=== PATIENT | female | born 1960 | race Caucasian/White ===

== ENCOUNTER 2016-03-11 23:03 | Emergency (ER) | payer OTHER ==
[2016-03-11] MEDS ORDERED: NS 0.9% 1000 ML* 1,000 ML IV ONE (23:30)
[2016-03-11 23:44] LABS: Hematocrit 42 % (35-47); Hemoglobin 13.9 g/dl (12.0-16.0); Mean Corpuscular HGB Conc 33 g/dl (31-36); Mean Corpuscular Hemoglobin 27 pg (27-31); Mean Corpuscular Volume 80 fL (80-97); Mean Platelet Volume 10 um3 (7.4-10.4); Red Blood Count 5.22 10^6/ul (4.0-5.4); Red Cell Distribution Width 14 % (10.5-15); White Blood Count 14.5 10^3/ul (3.5-10.8)
[2016-03-11 23:56] LABS: BUN/Creatinine Ratio 16.2 (8-20); Calcium 9.8 mg/dL (8.6-10.3); EGFR African American 114.7 (>60); EGFR Non-African American 89.2 (>60); Globulin 3.1 g/dL (2-4); Magnesium 1.8 mg/dL (1.9-2.7); Potassium 3.5 mmol/L (3.5-5.0); Total Bilirubin 0.7 mg/dL (0.2-1.0); Total Protein 7.1 g/dL (6.4-8.9)
--- NOTE | 2016-03-12 00:01 | ED ---
Haile Mcguire Billy, scribed for Darrel Garcia MD on 03/11/16 at 2343 . HPI Chest Pain - HPI Summary HPI Summary: Patient is a 55 year-old female coming to the ED with intermittent left-sided chest pain starting at approximately 1800 today. Pain radiates to the back. Severity 7/10. She states that she started a course of azithromycin for possible pneumonia today, and has had several episodes of N/V/D since she took her dose at noon. She also reports fever and wheezing. She denies any similar previous episodes of her current symptoms. - History of Current Complaint Chief Complaint: EDChestPainROMI Time Seen by Provider: 03/11/16 23:21 Hx Obtained From: Patient Onset/Duration: Started Hours Ago, Still Present Time of Onset: 18:00 Timing: Intermittent Initial Severity: Moderate Current Severity: Moderate Pain Intensity: 7 Pain Scale Used: 0-10 Numeric Chest Pain Location: Left Anterior Chest Pain Radiates: Yes Chest Pain Radiates To:: Back Aggravating Factor(s): Nothing Alleviating Factor(s): Nothing Associated Signs and Symptoms: Positive: Fever, Nausea, Vomiting, Wheezing, Other: - diarrhea - Allergy/Home Medications Allergies/Adverse Reactions: Allergies Allergy/AdvReac Type Severity Reaction Status Date / Time Bee Venom Allergy Unknown Verified 10/15/14 13:47 Reaction Details Penicillins Allergy See Comment Verified 10/15/14 13:46 Sulfa Antibiotics Allergy Rash Verified 10/15/14 13:47 PMH/Surg Hx/FS Hx/Imm Hx Endocrine/Hematology History: Reports: Hx Diabetes - diagnosed with pre-diabetes Cardiovascular History: Reports: Hx Hypertension Denies: Hx Myocardial Infarction - Cancer History Hx Chemotherapy: No Hx Radiation Therapy: No Infectious Disease History: No Infectious Disease History: Denies: Traveled Outside the [place] in Last 30 Days - Family History Known Family History: Positive: Cardiac Disease, Other Family History: FHx of breast cancer. - Social History Substance Use Type: Reports: None Smoking Status (MU): Never Smoked Tobacco Review of Systems Positive: Fever Positive: Chest Pain Positive: Other - wheezing Positive: Vomiting, Diarrhea, Nausea All Other Systems Reviewed And Are Negative: Yes Physical Exam Triage Information Reviewed: Yes Vital Signs On Initial Exam: Initial Vitals Temp Pulse Resp BP Pulse Ox 97.5 F 97 18 150/103 94 03/11/16 23:07 03/11/16 23:07 03/11/16 23:07 03/11/16 23:07 03/11/16 23:07 Vital Signs Reviewed: Yes Appearance: Positive: Well-Appearing, No Pain Distress Skin: Positive: Warm Head/Face: Positive: Normal Head/Face Inspection Eyes: Positive: Normal ENT: Positive: Hearing grossly normal Neck: Positive: Supple Respiratory/Lung Sounds: Positive: Clear to Auscultation, Breath Sounds Present. Negative: Rhonchi Cardiovascular: Positive: Normal. Negative: Murmur Abdomen Description: Positive: Nontender, Soft Bowel Sounds: Positive: Present Musculoskeletal: Positive: Strength/ROM Intact Neurological: Positive: Sensory/Motor Intact Psychiatric: Positive: Affect/Mood Appropriate Diagnostics - Vital Signs Vital Signs Temp Pulse Resp BP Pulse Ox 03/11/16 23:07 97.5 F 97 18 150/103 94 - Laboratory Lab Results: Lab Results 03/11/16 03/11/16 03/11/16 Range/Units 23:30 23:30 23:30 WBC 14.5 H (3.5-10.8) 10^3/ul RBC 5.22 (4.0-5.4) 10^6/ul Hgb 13.9 (12.0-16.0) g/dl Hct 42 (35-47) % MCV 80 (80-97) fL MCH 27 (27-31) pg MCHC 33 (31-36) g/dl RDW 14 (10.5-15) % Plt Count 183 (150-450) 10^3/ul MPV 10 (7.4-10.4) um3 Neut % (Auto) 85.9 H (38-83) % Lymph % (Auto) 8.9 L (25-47) % [place] % (Auto) 3.9 (1-9) % Eos % (Auto) 0.8 (0-6) % Baso % (Auto) 0.5 (0-2) % Absolute Neuts (auto) 12.5 H (1.5-7.7) 10^3/ul Absolute Lymphs (auto) 1.3 (1.0-4.8) 10^3/ul Absolute Monos (auto) 0.6 (0-0.8) 10^3/ul Absolute Eos (auto) 0.1 (0-0.6) 10^3/ul Absolute Basos (auto) 0.1 (0-0.2) 10^3/ul Absolute Nucleated RBC 0 10^3/ul Nucleated RBC % 0 Sodium 128 L (133-145) mmol/L Potassium 3.5 (3.5-5.0) mmol/L Chloride 106 (101-111) mmol/L Carbon Dioxide 23 (22-32) mmol/L Anion Gap -1 L (2-11) mmol/L BUN 11 (6-24) mg/dL Creatinine 0.68 (0.51-0.95) mg/dL Est GFR ( Amer) 114.7 (>60) Est GFR (Non-Af Amer) 89.2 (>60) BUN/Creatinine Ratio 16.2 (8-20) Glucose 143 H (70-100) mg/dL Lactic Acid 0.8 (0.5-2.0) mmol/L Calcium 9.8 (8.6-10.3) mg/dL Magnesium 1.8 L (1.9-2.7) mg/dL Total Bilirubin 0.70 (0.2-1.0) mg/dL AST 18 (13-39) U/L ALT 30 (7-52) U/L Alkaline Phosphatase 93 (34-104) U/L Total Protein 7.1 (6.4-8.9) g/dL Albumin 4.0 (3.2-5.2) g/dL Globulin 3.1 (2-4) g/dL Albumin/Globulin Ratio 1.3 (1-3) Result Diagrams: 03/11/16 23:30 03/11/16 23:30 Lab Statement: Any lab studies that have been ordered have been reviewed, and results considered in the medical decision making process. - Radiology CXR Xray Interpretation: No Acute Changes Radiology Interpretation Completed By: ED Physician - EKG 5021 EKG Interpretation: NSR 97 bpm, WNL Re-Evaluation - Re-Evaluation First Eval Change: Improved Chest Pain Course/Dx - Diagnoses Provider Diagnoses: Sinusitis Discharge - Discharge Plan Condition: Stable Disposition: HOME Patient Education Materials: Sinusitis (ED) Referrals: Jessi Coello MD [Primary Care Provider] - Additional Instructions: CONTINUE PRESENT TREATMENT. FOLLOW UP WITH YOUR PRIMARY CARE PHYSICIAN. The documentation as recorded by the scribe, Be,Carl accurately reflects the service I personally performed and the decisions made by me, Darrel Garcia MD.
[2016-03-12 00:25] VITALS: BP 137/85
--- NOTE | 2016-03-12 07:18 | RAD ---
HISTORY: Cough COMPARISONS: July 06, 2006 VIEWS: 2: Frontal dual-energy and lateral views of the chest. FINDINGS: CARDIOMEDIASTINAL SILHOUETTE: The cardiomediastinal silhouette is normal. PETTY: The petty are normal. PLEURA: The costophrenic angles are sharp. No pleural abnormalities are noted. LUNG PARENCHYMA: The lungs are clear. ABDOMEN: The upper abdomen is clear. There is no subphrenic gas. BONES AND SOFT TISSUES: No bone or soft tissue abnormalities are noted. OTHER: None. IMPRESSION: NO ACTIVE CARDIOPULMONARY DISEASE.
== END 2016-03-12 00:26 | disposition home or self-care (01) ==
LOC: ED 23:03
DX: J32.9 Chronic sinusitis, unspecified (principal); R07.9 Chest pain, unspecified; R50.9 Fever, unspecified; R06.2 Wheezing; R11.2 Nausea with vomiting, unspecified; R19.7 Diarrhea, unspecified; R05 Cough
CPT/HCPCS: 36415; 71020; 80053; 83605; 83735; 85025; 93005; 96360; 99282

== ENCOUNTER 2016-09-16 10:03 | Emergency (ER) | payer OTHER ==
[2016-09-16] MEDS ORDERED: Aspirin Low Dose CHEW TAB* 81 MG PO ONE (10:19)
--- NOTE | 2016-09-16 10:39 | RAD ---
Indication: Chest pain. Single frontal view of the chest performed at 1030 hours was reviewed. Comparison is made with previous exam dated March 11, 2016. No mediastinal shift is noted. Heart is of normal size and configuration. Lung montiel appear clear. IMPRESSION: NO ACTIVE CARDIOPULMONARY DISEASE IS NOTED.
[2016-09-16 10:51] LABS: Hematocrit 42 % (35-47); Hemoglobin 13.7 g/dl (12.0-16.0); Mean Corpuscular HGB Conc 33 g/dl (31-36); Mean Corpuscular Hemoglobin 27 pg (27-31); Mean Corpuscular Volume 82 fL (80-97); Mean Platelet Volume 10 um3 (7.4-10.4); Red Blood Count 5.06 10^6/ul (4.0-5.4); Red Cell Distribution Width 15 % (10.5-15)
[2016-09-16 10:52] LABS: Add Diff/Slide Review? Slide Review Added; Comments Flag Yes
[2016-09-16] MEDS ORDERED: Ondansetron INJ* 2 MG/ML VIAL IV ONE (11:05)
[2016-09-16 11:07] LABS: Albumin 3.9 g/dL (3.2-5.2); BUN/Creatinine Ratio 11.3 (8-20); Calcium 9.5 mg/dL (8.6-10.3); EGFR African American 108.7 (>60); EGFR Non-African American 84.6 (>60); Globulin 3.3 g/dL (2-4); Magnesium 1.8 mg/dL (1.9-2.7); Potassium 3.6 mmol/L (3.5-5.0); Total Bilirubin 0.7 mg/dL (0.2-1.0); Total Protein 7.2 g/dL (6.4-8.9)
[2016-09-16 11:10] LABS: Troponin I 0.01 ng/mL (<0.04)
[2016-09-16 11:32] LABS: TSH (Thyroid Stimulating Horm) 1.08 mcIU/mL (0.34-5.60)
[2016-09-16] MEDS ORDERED: Ketorolac INJ* 30 MG/ML 1 ML VIAL IV PUSH ONE (12:25)
[2016-09-16 12:36] LABS: Manual Entry Verification HAN0055; Mono Internal Control QC Line Present
[2016-09-16] MEDS ORDERED: Azithromycin IV* 500 MG ADVAN VIAL IVPB ONE (13:08)
[2016-09-16] MEDS ORDERED: NS 0.9% 1000 ML*IV.FLUID BOLUS ONE (13:58)
[2016-09-16 15:43] VITALS: BP 119/81
[2016-09-16 15:55] LABS: Urine Bilirubin Negative (Negative); Urine Glucose Negative (Negative); Urine Nitrite Negative (Negative)
[2016-09-16 16:03] LABS: Urine Bacteria Absent (Absent)
--- NOTE | 2016-09-16 18:59 | ED ---
Ashley Mcguire Auryana, scribed for Lele Andrade MD on 09/16/16 at 1059 . HPI Chest Pain - HPI Summary HPI Summary: 56 year old female presents to the ED with general illness and chest pain. Patient states that over the last few days, she has been feeling sick and lightheaded on exertion. She reports fever, chills, sore throat, sinus pain, and ear pain (yesterday but now resolved). Patient also reports that last night she developed chest pain located in the middle of her chest, back pain between shoulder blades, nausea, and vomiting x3. She denies any SOB. PMHx is significant for preDM, HTN and GERD. - History of Current Complaint Chief Complaint: EDChestPainROMI Time Seen by Provider: 09/16/16 10:19 Hx Obtained From: Patient Onset/Duration: Started Hours Ago - lastnight Timing: Constant Initial Severity: Mild Current Severity: Moderate Pain Intensity: 7 Pain Scale Used: 0-10 Numeric Chest Pain Location: Discrete at: - central chest Chest Pain Radiates: No Aggravating Factor(s): Exertion Associated Signs and Symptoms: Positive: Chest Pain, Fever, Chills, Lightheadedness - lightheadedness on exertion, Nausea - and vomiting, Back Pain , Sinus Discomfrot - pain, Other: - sore throat, ear pain. Negative: Shortness of Breath - Allergy/Home Medications Allergies/Adverse Reactions: Allergies Allergy/AdvReac Type Severity Reaction Status Date / Time Bee Venom Allergy Unknown Verified 09/16/16 10:06 Reaction Details Penicillins Allergy See Comment Verified 09/16/16 10:06 Sulfa Antibiotics Allergy Rash Verified 09/16/16 10:06 PMH/Surg Hx/FS Hx/Imm Hx Endocrine/Hematology History: Reports: Hx Diabetes - diagnosed with pre-diabetes Cardiovascular History: Reports: Hx Hypertension Denies: Hx Myocardial Infarction Musculoskeletal History: Comment Only: Hx Osteoporosis - FAMILY HX - Cancer History Hx Chemotherapy: No Hx Radiation Therapy: No - Surgical History Surgery Procedure, Year, and Place: NASAL SX Infectious Disease History: No Infectious Disease History: Denies: Traveled Outside the [place] in Last 30 Days - Family History Known Family History: Positive: Cardiac Disease, Other Family History: FHx of breast cancer. - Social History Lives: With Family Alcohol Use: None Substance Use Type: Reports: None Smoking Status (MU): Never Smoked Tobacco Review of Systems Positive: Fever, Chills, Other - lightheadedness on exertion Eyes: Negative Positive: Sore Throat, Ear Ache, Other - sinus pain Positive: Chest Pain - middle of her chest Respiratory: Negative Negative: Shortness Of Breath Positive: Vomiting, Nausea Genitourinary: Negative Positive: no symptoms reported Positive: Other - back pain located between her shoulder blades Skin: Negative Neurological: Negative Psychological: Normal All Other Systems Reviewed And Are Negative: Yes Physical Exam - Summary Physical Exam Summary: VITAL SIGNS: Reviewed. GENERAL: Patient is a well-developed and nourished female who is lying comfortable in the stretcher. Patient is not in any acute respiratory distress. HEAD AND FACE: No signs of trauma. No ecchymosis, hematomas or skull depressions. No sinus tenderness. EYES: PERRLA, EOMI x 2, No injected conjunctiva, no nystagmus. EARS: Hearing grossly intact. Ear canals and tympanic membranes are within normal limits. MOUTH: Oropharynx: tonsils - swollen with exudates - but otherwise WNL. NECK: Supple, trachea is midline, no adenopathy, no JVD, no carotid bruit, no c- spine tenderness, neck with full ROM. CHEST: Symmetric, no tenderness at palpation LUNGS: Clear to auscultation bilaterally. No wheezing or crackles. CVS: Regular rate and rhythm, S1 and S2 present, no murmurs or gallops appreciated. ABDOMEN: Soft, non-tender. No signs of distention. No rebound no guarding, and no masses palpated. Bowel sounds are normal. EXTREMITIES: FROM in all major joints, no edema, no cyanosis or clubbing. NEURO: Alert and oriented x 3. No acute neurological deficits. Speech is normal and follows commands. SKIN: Dry and warm. Triage Information Reviewed: Yes Vital Signs On Initial Exam: Initial Vitals Temp Pulse Resp BP Pulse Ox 99.1 F 94 20 131/106 94 09/16/16 10:06 09/16/16 10:06 09/16/16 10:06 09/16/16 10:09/16/16 10:06 Vital Signs Reviewed: Yes - [place] Coma Scale Coma Scale Total: 15 Diagnostics - Vital Signs Vital Signs Temp Pulse Resp BP Pulse Ox 09/16/16 10:06 99.1 F 94 20 131/106 94 - Laboratory Lab Results: Lab Results 09/16/16 09/16/16 09/16/16 Range/Units 10:44 10:44 10:44 WBC 19.0 H (3.5-10.8) 10^3/ul RBC 5.06 (4.0-5.4) 10^6/ul Hgb 13.7 (12.0-16.0) g/dl Hct 42 (35-47) % MCV 82 (80-97) fL MCH 27 (27-31) pg MCHC 33 (31-36) g/dl RDW 15 (10.5-15) % Plt Count 154 (150-450) 10^3/ul MPV 10 (7.4-10.4) um3 Neut % (Auto) 83.9 H (38-83) % Lymph % (Auto) 9.5 L (25-47) % [place] % (Auto) 6.0 (1-9) % Eos % (Auto) 0 (0-6) % Baso % (Auto) 0.6 (0-2) % Absolute Neuts (auto) 15.9 H (1.5-7.7) 10^3/ul Absolute Lymphs (auto) 1.8 (1.0-4.8) 10^3/ul Absolute Monos (auto) 1.1 H (0-0.8) 10^3/ul Absolute Eos (auto) 0 (0-0.6) 10^3/ul Absolute Basos (auto) 0.1 (0-0.2) 10^3/ul Absolute Nucleated RBC 0.01 10^3/ul Nucleated RBC % 0.1 Sodium 130 L (133-145) mmol/L Potassium 3.6 (3.5-5.0) mmol/L Chloride 99 L (101-111) mmol/L Carbon Dioxide 22 (22-32) mmol/L Anion Gap 9 (2-11) mmol/L BUN 8 (6-24) mg/dL Creatinine 0.71 (0.51-0.95) mg/dL Est GFR ( Amer) 108.7 (>60) Est GFR (Non-Af Amer) 84.6 (>60) BUN/Creatinine Ratio 11.3 (8-20) Glucose 116 H (70-100) mg/dL Lactic Acid 0.6 (0.5-2.0) mmol/L Calcium 9.5 (8.6-10.3) mg/dL Magnesium 1.8 L (1.9-2.7) mg/dL Total Bilirubin 0.70 (0.2-1.0) mg/dL AST 15 (13-39) U/L ALT 22 (7-52) U/L Alkaline Phosphatase 82 (34-104) U/L Total Creatine Kinase 61 (10-223) U/L CK-MB (CK-2) 0.7 (0.6-6.3) ng/mL Troponin I 0.01 (<0.04) ng/mL B-Natriuretic Peptide ( - 100) pg/mL Total Protein 7.2 (6.4-8.9) g/dL Albumin 3.9 (3.2-5.2) g/dL Globulin 3.3 (2-4) g/dL Albumin/Globulin Ratio 1.2 (1-3) TSH 1.08 (0.34-5.60) mcIU/mL Monoscreen Negative (Negative) Group A Strep Rapid (Negative) 09/16/16 09/16/16 09/16/16 Range/Units 10:44 11:13 13:29 WBC (3.5-10.8) 10^3/ul RBC (4.0-5.4) 10^6/ul Hgb (12.0-16.0) g/dl Hct (35-47) % MCV (80-97) fL MCH (27-31) pg MCHC (31-36) g/dl RDW (10.5-15) % Plt Count (150-450) 10^3/ul MPV (7.4-10.4) um3 Neut % (Auto) (38-83) % Lymph % (Auto) (25-47) % [place] % (Auto) (1-9) % Eos % (Auto) (0-6) % Baso % (Auto) (0-2) % Absolute Neuts (auto) (1.5-7.7) 10^3/ul Absolute Lymphs (auto) (1.0-4.8) 10^3/ul Absolute Monos (auto) (0-0.8) 10^3/ul Absolute Eos (auto) (0-0.6) 10^3/ul Absolute Basos (auto) (0-0.2) 10^3/ul Absolute Nucleated RBC 10^3/ul Nucleated RBC % Sodium (133-145) mmol/L Potassium (3.5-5.0) mmol/L Chloride (101-111) mmol/L Carbon Dioxide (22-32) mmol/L Anion Gap (2-11) mmol/L BUN (6-24) mg/dL Creatinine (0.51-0.95) mg/dL Est GFR ( Amer) (>60) Est GFR (Non-Af Amer) (>60) BUN/Creatinine Ratio (8-20) Glucose (70-100) mg/dL Lactic Acid (0.5-2.0) mmol/L Calcium (8.6-10.3) mg/dL Magnesium (1.9-2.7) mg/dL Total Bilirubin (0.2-1.0) mg/dL AST (13-39) U/L ALT (7-52) U/L Alkaline Phosphatase (34-104) U/L Total Creatine Kinase (10-223) U/L CK-MB (CK-2) (0.6-6.3) ng/mL Troponin I 0.03 (<0.04) ng/mL B-Natriuretic Peptide 68 ( - 100) pg/mL Total Protein (6.4-8.9) g/dL Albumin (3.2-5.2) g/dL Globulin (2-4) g/dL Albumin/Globulin Ratio (1-3) TSH (0.34-5.60) mcIU/mL Monoscreen (Negative) Group A Strep Rapid Negative (Negative) Result Diagrams: 09/16/16 10:44 09/16/16 10:44 Lab Statement: Any lab studies that have been ordered have been reviewed, and results considered in the medical decision making process. - Radiology CXR Xray Interpretation: No Acute Changes Radiology Interpretation Completed By: Radiologist - EKG 10:14 EKG Interpretation: sinus rhythm @ 97 bpm, no ST elevation Chest Pain Course/Dx - Course Assessment/Plan: 56 year old female presents to the ED with general illness and chest pain. Patient states that over the last few days, she has been feeling sick and light headed on exertion. She reports fever, chills, sore throat, sinus pain, and ear pain (yesterday but now resolved). Patient also reports that last night she developed chest pain located in the middle of her chest, back pain between shoulder blades, nausea, and vomiting x3. She denies any SOB. PMHx is significant for pre-DM, HTN and GERD. In the ED course an IV access was obtained. Patient was placed in a quality assurance monitor. Patient was started with IV fluids. Labs within normal limits except for WBC 19, glucose 116, magnesium 1.8. Troponin #1: 0.00 and Troponin # 2: 0.03 (4 hours later). EKG shows a NSR at 97 BPM w/o ST elevations. CXR impression: No acute pathology. In the physical exam patient has pharyngeal erythema and tonsillar exudates. Rapid strep is negative an mono screen is negative but I believe patine has an acute pharyngitis and tonsillitis. She reports she react really bad to antibiotics but she is willing to take Azithromycin. Chest pain is sharp , non radiating, an increases at deep breath therefore I believe is not ACS. She was given Toradol for pain. Re-examination she is feeling better. She has no complaints. I discussed all the findings and test results with the patient. Patient was instructed to return to the emergency room immediately if any of the symptoms return or worsens. Plan of care was discussed with the patient and understands and agrees. All questions were answered at patient satisfaction. There were no further complaints or concerns. Lung exam before discharge: CTA B /L. Good air exchange. No wheezing or crackles heard. CVS: S1 and S2 present. No murmurs appreciated. Patient is alert and oriented x 3. Patient is hemodynamically stable. Patient will be discharged home with follow up PCP in the next 2-3 days - Chest Pain Differential Diagnosis/HQI/PQRI: ACS, Chest Wall, Lower Respiratory Infection - Diagnoses Provider Diagnoses: Chest pain, atypical, Acute infective tonsillitis, Pharyngitis Discharge - Discharge Plan Condition: Stable Disposition: HOME Prescriptions: Azithromycin TAB* [Zithromax TAB (Z-ERNESTO) 250 mg #6 tabs] 250 mg PO DAILY #4 tab Patient Education Materials: Chest Pain (ED), Pharyngitis (ED), Tonsillitis (ED ) Referrals: Jessi Coello MD [Primary Care Provider] - 2 Days The documentation as recorded by the Ashley carballo Auryana accurately reflects the service I personally performed and the decisions made by me, Lele Andrade MD.
== END 2016-09-16 15:40 | disposition home or self-care (01) ==
LOC: ED 10:03
DX: R07.89 Other chest pain (principal); J02.9 Acute pharyngitis, unspecified; J03.90 Acute tonsillitis, unspecified; R50.9 Fever, unspecified; R42 Dizziness and giddiness; R11.2 Nausea with vomiting, unspecified; H92.09 Otalgia, unspecified ear
CPT/HCPCS: 36415; 71010; 80053; 81003; 81015; 82550; 82553; 83605; 83735; 83880; 84443; 84484; 85025; 86308; 87086; 87651; 93005; 96374; 96375; 99284; A9270-GY; J0456; J1885; J2405

== ENCOUNTER 2017-04-19 06:59 | Day surgery (SDC) | payer OTHER ==
--- NOTE | 2017-04-06 17:20 | HP ---
HISTORY AND PHYSICAL: DATE OF ADMISSION/SURGERY: 04/19/17 DATE OF OFFICE VISIT: 04/06/17 SURGEON: Angeline Roman MD * (DICTATED BY WAYNE MAYES) PROCEDURE: Left knee arthroscopy with partial medial meniscectomy, possible chondroplasty, possible synovectomy. CHIEF COMPLAINT: Left knee pain. HISTORY OF PRESENT ILLNESS: Ms. Jackson is a 56-year-old female with complaints of left medial knee pain and MRI confirms a medial meniscus tear and she has elected to proceed with surgery. PAST MEDICAL HISTORY: GERD and hypertension. PAST SURGICAL HISTORY: Appendectomy, tubal ligation, ORIF of the right fibula, and nose surgery. CURRENT MEDICATIONS: 1. Losartan potassium 50 mg daily. 2. Flonase as needed. 3. Omeprazole 20 mg daily. 4. Fish oil. 5. Calcium. 6. Magnesium. 7. Zinc. 8. Vitamin D. ALLERGIES: To PENICILLIN, SULFA, BEE STINGS. FAMILY HISTORY: Heart disease. SOCIAL HISTORY: A 56-year-old female. She lives with her . 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 She does not smoke or use drugs. Uses occasional alcohol. REVIEW OF SYSTEMS: A complete 14-point review of systems was reviewed with the patient, was positive for GERD. She denies history of DVT, PE, hepatitis C, or HIV. She does report severe nausea and vomiting with anesthesia. PHYSICAL EXAMINATION GENERAL: She is a well-developed, well-nourished, in no acute distress. VITAL SIGNS: She stands 5 feet 8 inches tall, weighs 197 pounds, blood pressure is 124/83, heart rate 72. HEENT: Normocephalic, atraumatic. NECK: Supple. No palpable lymph nodes. PULMONARY: Lungs are clear to auscultation bilaterally. CARDIO: Regular rate and rhythm. Strong S1, S2. ABDOMEN: Soft, nontender, nondistended. NEUROLOGICAL: She is alert and oriented x3. Cranial nerves II through XII are intact. MUSCULOSKELETAL: Left lower extremity, the skin is intact. There are no open wounds or abrasions. She has some tenderness along the medial joint line. There is some mild joint effusion. She has positive Nathalia's, positive Apley' s, negative Gem's. 2+ dorsalis pedis pulses and intact sensation. ASSESSMENT AND PLAN: Ms. Jackson is a 56-year-old female with complaints of medial left knee pain, and MRI confirms the medial meniscus tear. She has elected to proceed with left knee arthroscopy with partial medial meniscectomy, possible chondroplasty, possible synovectomy. Surgery is scheduled for with Dr. Roman. Dr. Roman discussed the risks and benefits of the surgery at today's visit and all of her questions were answered. She will follow up with Dr. Roman in 2 weeks after the surgery. WAYNE MAYES [id number]/[facility] #: [id number] SHANKAR
[~2017-04-19 06:59] MED LIST: Buffered Lidocaine 0.9% SYRIN* 5 ML/SYR SYRINGE INTRADERM ONE; Dexamethasone IV* 4 MG/ML 1 ML (4 MG) IV SLOW PU ONE; DiMENhydriNATE IV* 50 MG/ML VIAL IV PUSH ONE; Famotidine IV* 10 MG/ML 2 ML (20 mg) IV ONE
[2017-04-19] MEDS ORDERED: Dexamethasone IV* 4 MG/ML 1 ML (4 MG) ONE (07:11)
[2017-04-19] MEDS ORDERED: Famotidine IV* 10 MG/ML 2 ML (20 mg) ONE (07:11)
[2017-04-19] MEDS ORDERED: Clindamycin 900 MG IVPREMIX(* 900 MG/50 ML SDV IV ONE (07:12)
[2017-04-19] MEDS ORDERED: DiMENhydriNATE IV* 50 MG/ML VIAL ONE (07:12)
[2017-04-19] MEDS ORDERED: Midazolam* 1 MG/ML 2 ML VIAL (2 MG) ONE (07:42)
[2017-04-19] MEDS ORDERED: fentaNYL* 50 MCG/ML 2 ML VIAL (100 MCG VIAL) ONE ×3 (07:42→10:14)
[2017-04-19] MEDS ORDERED: oxyCODONE/Acetamin 5/325 MG* TAB PO PRN (08:00)
[2017-04-19] MEDS ORDERED: PROCHLORPERAZINE INJ 5 MG/ML 2 ML VIAL IV PRN (08:00)
[2017-04-19] MEDS ORDERED: Naloxone* 0.4 MG/ML 1 ML VIAL IV PRN (08:00)
[2017-04-19] MEDS ORDERED: HYDROcodone/ACETAMIN 5-325 MG* 1 TAB PO PRN (08:00)
[2017-04-19] MEDS ORDERED: Propofol* 10 MG/ML 20 ML BTL IV PUSH ONE (08:12)
[2017-04-19] MEDS ORDERED: Ketorolac INJ* 30 MG/ML 1 ML VIAL ONE (08:12)
[2017-04-19] MEDS ORDERED: Lidocaine 2% PF * 5 ML VIAL ONE (08:12)
[2017-04-19] MEDS ORDERED: methylPREDNISolone ACETATE 80* 80 MG/ML 1 ML VIAL ONE ×2 (08:22→08:28)
[2017-04-19] MEDS ORDERED: Bupivacaine 0.5% SDV PF* 10-30ML VIAL ONE ×2 (08:22→08:28)
[2017-04-19] MEDS ORDERED: EPINEPHRINE 1 MG/ML 1 ML VIAL ONE (08:22)
[2017-04-19] MEDS ORDERED: Ondansetron INJ* 2 MG/ML VIAL ONE (08:46)
[2017-04-19] MEDS: fentaNYL* 50 MCG/ML 2 ML VIAL (100 MCG VIAL) IV PRN ×4 (09:27→11:08)
[2017-04-19] MEDS ORDERED: oxyCODONE/Acetamin 5/325 MG* TAB ONE (10:30)
[2017-04-19 12:01] VITALS: BP 137/86
--- NOTE | 2017-04-20 12:28 | OP ---
DATE OF OPERATION: 04/19/17 - [facility] DATE OF : 56 ATTENDING SURGEON: Angeline Roman MD DIRECTOR OF SURGERY: WAYNE Harvey. Ms. Elizalde did help throughout the procedure with preparation of the left wound retraction, manipulation of the knee and wound closure. ANESTHESIOLOGIST: Dr. Nova. ANESTHESIA: General. PRE-OPERATIVE DIAGNOSIS: Left knee medial meniscal tear. POST-OPERATIVE DIAGNOSES: Left knee medial meniscal tear, medial plica, moderate osteoarthritis of the patellofemoral compartment. OPERATIVE PROCEDURE: Left knee arthroscopy with partial medial meniscectomy and medial plica excision. ESTIMATED BLOOD LOSS: Less than 25 cc. COMPLICATIONS: None. SPECIMEN: None. BRIEF HISTORY/INDICATION: Ms. Jackson is a 56-year-old female who injured her left knee while lifting a heavy table on 12/29/16. She felt a pop in the back of her knee. Since that time, she has had swelling and pain in the left knee with mechanical symptoms. She went on to fail conservative treatment and an MRI confirmed a medical meniscal tear. Due to the failure of conservative treatment , she elected to proceed with left knee arthroscopy and partial medial meniscectomy. Informed consent was obtained from the patient. She understood the risks of surgery included but were not limited to bleeding, infection, damage to nearby structures, continued pain, need for further surgery, retear of the meniscus, stroke, heart attack, blood clot, and . She wished to proceed. INTRAOPERATIVE FINDINGS: Intraoperatively, the patient was noted to have some grade 3 and 4 Outerbridge cartilage changes in the patellofemoral compartment mainly in the femoral trochlear groove. Some grade 2 and 3 Outerbridge cartilage changes in the medial compartment. She had a radial type tear in the posterior horn of the medial meniscus in the white-red zone. She had a large inflamed medial plica, which did impinge with patellofemoral tracking. DESCRIPTION OF PROCEDURE: Ms. Jackson was identified in the preanesthesia unit. Her left lower extremity was marked as the correct operative side. Informed consent was signed and placed in the chart. The patient was taken to the operating room and placed under general anesthesia. Left lower extremity was prepped and draped in the usual sterile fashion. Preop time-out was made to correctly identify the patient's side and site. Appropriate perioperative antibiotics were given within 1 hour of incision. A standard 0.5 cm anterolateral portal incision was made with a 15 blade and carried down to the capsule. Trocar was introduced. As soon as the light and water sources were turned on, there was immediate visualization of the suprapatellar pouch. A tour of the knee joint was performed. Suprapatellar pouch had no obvious abnormality. Patellofemoral compartment showed some exposed subchondral bone and cartilage frame. These were grade 3 and 4 Outerbridge cartilage changes. A large inflamed medial plica was visualized. With range of motion, the plica did impinge with patello-femoral tracking. No loose body in the medial gutter. Medial compartment showed some mild degenerative changes grade 2 and 3 Outerbridge cartilage changes along the medial femoral condyle. A posterior medial meniscal tear was visualized. ACL and PCL were intact. The knee was placed in a [id number] position. There was no lateral meniscal tear evident. No significant degenerative changes. Lateral gutter showed no plica or loose body. Under direct visualization, a medial portal incision was made. Shaver and radiofrequency ablation wand were used to remove some anterior synovitis. A conserved and medial plica excision was performed using the shaver and radio- frequency ablation wand. Patellofemoral tracking had no impingement with soft tissue. After this straight biter and shaver were used to perform partial medial meniscectomy. This was performed in the red-white zone in the posterior one-third of the meniscus. A smooth border was obtained. Further probing showed no additional tears or fragments of the meniscus. A full tour of the knee joint was performed and no additional findings were noted. The knee was copiously irrigated with sterile saline. All instruments were removed. Incisions were closed using interrupted 3-0 nylon suture. Intraarticular injection 80 mg of Depo-Medrol and 6 cc of 0.25% Marcaine were placed in the joint. The patient's incisions were covered using Xeroform, 4x4's and Webril. Corbin wrap and cold pack were placed over this. The patient's anesthesia was reversed without difficulty. She was taken to the PACU in stable condition. Intended weightbearing will be weightbearing as tolerated. Intended DVT prophylaxis will be aspirin. [id number]/[facility] #: [id number] [facility]
== END 2017-04-19 12:05 | disposition home or self-care (01) ==
LOC: OR 06:59
PROVIDERS: ATTEND Orthopaedic Surgery Adult Reconstructive Orthopaedic Surgery
DX: S83.242A Other tear of medial meniscus, current injury, left knee, initial encounter (principal); M67.52 Plica syndrome, left knee; M17.12 Unilateral primary osteoarthritis, left knee; X50.0XXA Overexertion from strenuous movement or load, initial encounter; Y92.9 Unspecified place or not applicable; I10 Essential (primary) hypertension; K21.9 Gastro-esophageal reflux disease without esophagitis
CPT/HCPCS: A9270-GY; J1040; J1100; J1240; J1885; J2250; J2405; J2704; J3010